=== PATIENT | male | born 1985 | race Two or more races ===

== ENCOUNTER 2024-03-21 15:52 | Emergency (ER) | payer BC ==
[~2024-03-21] VITALS: Ht 177.8 cm; Wt 86.0 kg
[2024-03-21 16:52] LABS: BASOPHILS % (AUTO) 0.4 % (0-1); EOSINOPHILS # (AUTO) 0.1 X10'3 (0-0.9); EOSINOPHILS % (AUTO) 1.9 % (0-6); HEMATOCRIT 45.1 % (42.0-52.0); HEMOGLOBIN 15.3 g/dl (14.0-17.9); LYMPHOCYTES # (AUTO) 1.7 X10'3 (1.1-4.8); LYMPHOCYTES % (AUTO) 24.4 % (21-51); MEAN CORPUSCULAR HGB CONC 33.8 g/dL (33.0-36.5); MEAN CORPUSCULAR VOLUME 85.7 FL (78-98); MEAN PLATELET VOLUME 8.5 FL (7.4-10.4); MONOCYTES # (AUTO) 0.4 X10'3 (0-0.9); MONOCYTES % (AUTO) 6.1 % (2-12); NEUTROPHILS # (AUTO) 4.8 X10'3 (1.8-7.7); NEUTROPHILS % (AUTO) 67.2 % (42-75); PLATELET COUNT 277 X10'3 (140-440); RED BLOOD COUNT 5.27 X10'6 (4.70-6.10); RED CELL DISTRIBUTION WIDTH 13.7 % (11.5-14.5); WHITE BLOOD COUNT 7.1 X10'3 (4.5-11.0)
[2024-03-21 17:12] LABS: ALBUMIN 4.3 G/DL (3.4-5.0); ANION GAP 6 (8-16); BLOOD UREA NITROGEN 12 MG/DL (7-18); BUN/CREATININE RATIO 13.3 (10.0-20.0); CALCIUM 9.5 MG/DL (8.5-10.1); CHLORIDE 105 MMOL/L (99-107); GLUCOSE 101 MG/DL (70-104); POTASSIUM 3.7 MMOL/L (3.5-5.1); SODIUM 140 MMOL/L (135-145); TOTAL CARBON DIOXIDE 29.4 MMOL/L (24-32); eCRCL 115 ML/MIN; eGFR > 90 ML/MIN
[2024-03-21 17:13] LABS: PRO BRAIN NATRIURETIC PEPTIDE < 30 PG/ML (0-125)
[2024-03-21] MEDS: hydrOXYzine 25 MG tablet PO ONE (17:13)
[2024-03-21] MEDS ORDERED: HYDR-3686 PO (17:38)
[2024-03-21 17:45] VITALS: BP 120/68; PULSE 74; RESP 14; TEMP 98.6; O2SAT 98
[2024-03-21 18:04] LABS: URINE AMPHETAMINE SCREEN NEGATIVE (Neg); URINE BARBITUATE SCREEN NEGATIVE (Neg); URINE BENZODIAZEPINES SCREEN NEGATIVE (Neg); URINE CANNABINOID SCREEN NEGATIVE (Neg); URINE COCAINE SCREEN NEGATIVE (Neg); URINE METHADONE SCREEN NEGATIVE (Neg); URINE OPIATE SCREEN NEGATIVE (Neg); URINE PHENCYCLIDINE SCREEN NEGATIVE (Neg)
== END 2024-03-21 17:47 | disposition home or self-care (01) ==
LOC: ER 15:53
DX: F41.9 Anxiety disorder, unspecified (principal); I49.8 Other specified cardiac arrhythmias
CPT/HCPCS: 36415; 71045; 80048; 80305; 83880; 84484; 85025; 93005; 99285; Q0177

== ENCOUNTER 2025-06-23 12:28 | Emergency (ER) | payer BC, OTHER ==
[~2025-06-23] VITALS: Ht 177.8 cm; Wt 86.5 kg
[2025-06-23 12:47] VITALS: BP 124/84; PULSE 60; RESP 18; TEMP 97.3; O2SAT 100
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
[2025-06-23] MEDS ORDERED: CIPR2.5D21 RIGHTEYE ×2 (14:20→14:22)
== END 2025-06-23 14:37 | disposition home or self-care (01) ==
LOC: ER 12:29
DX: T26.91XA Corrosion of right eye and adnexa, part unspecified, initial encounter (principal); Z79.899 Other long term (current) drug therapy; Y93.89 Activity, other specified; Y92.89 Other specified places as the place of occurrence of the external cause; Y99.8 Other external cause status
CPT/HCPCS: 99283